=== PATIENT | male | born 1995 | race Caucasian/White ===

== ENCOUNTER 2020-01-30 08:30 | Emergency (ER) | payer OTHER, SELFPAY ==
[2020-01-30 08:32] VITALS: BP 154/75; PULSE 71; RESP 18; TEMP 36.3; O2SAT 99; BMI 26.6
[2020-01-30] MEDS: Lidocaine/Epi/Tetracaine 50 ML 1 APPLIC TOPICAL (09:02)
--- NOTE | 2020-01-30 09:59 | ED.VIS.UPPEX ---
History of Present Illness Chief Complaint: Laceration Informant: Patient Occurred: Today - JPTA Mechanism/Context: Injury - accidentally on sharp end of a piece of metal Context: Sudden Onset Timing: Continuous Quality of Pain: - - sore Location: right hand Current Severity: Mild Maximum Severity: Mild Worsened by: palpation Relieved by: leaving alone Associated Symptoms: Negative for: Parasthesia, Weakness, Loss of Funtion Narrative: Last tetanus is 5 years ago. [id number]. Past Medical History - Allergies and Home Meds Allergies/Adverse Reactions: Allergies No Known Allergies Allergy (Verified 01/30/20 08:31) Primary Care Physician: Tika Jiménez MD [Primary Care Provider] - Past Medical History: None Smoking Status: Current some day smoker Review of Systems Musculoskeletal: Reports: Extremity Pain Skin: Reports: Wounds Neurological: Denies: Headache, Weakness, Numbness Physical Exam Vital Signs/Narrative: Vital Signs Temp Pulse Resp BP Pulse Ox 01/30/20 08:32 97.3 F L 71 18 154/75 H 99 General: Well nourished, Well developed, - - No acute distress Head: Normocephalic, Atraumatic Extremeties: Full range of motion throughout all digits and the wrist, throughout the right hand. The tendon of the extensor digitorum to the middle finger is plainly exposed within the laceration. Full extension without pain is present. The extensor tendon was inspected throughout the full range of the finger, and there is no sign of any injury to it. There is no gross contamination to the wound with one exception, there is one small speck of john material, unknown if it is dirt, metal, etc. Skin: Normal color, No rash, Trauma - 2.5 cm clean appearing linear laceration down to the tendons on the dorsum of the right hand Neurological: Alert, Oriented x3, Cranial nerves II-XII grossly intact, Normal Strength, Normal Sensation, Normal Gait Psychological: Normal affect, Normal Mood Diagnostic/Tx/Re-eval - Medical Decision Making Wound was repaired, the punctate contamination was removed, wound was irrigated thoroughly. All questions answered at the bedside, removal in 10-14 days. Procedures - Lacerations R hand Length: 2.5 cm Depth: Tendon - but tendon not injured Shape: Linear Prep: Sterile Conditions, Chlorhexadine Laceration repair: Foreign material removed, Irrigated, Lidocaine with epi, Local - topical LET, Wound explored Irrigated (ml): 100 Number of Sutures/Carrie: 3 Suture Information: Ethilon, Horizontal, Mattress, 4-0 ED Disposition - Plan for ED Patient: Disposition: Home or Assisted Living Diagnosis: Laceration of right hand Instructions: ED Laceration Hand Referrals: Tika Jiménez MD [Primary Care Provider] - 10-14 Days suture removal (Or may come back to ER.)
[2020-01-30 10:22] VITALS: RESP 16
== END 2020-01-30 10:24 | disposition home or self-care (01) ==
LOC: ED 10:20
PROVIDERS: Emergency Provider Emergency Medicine
DX: S61.411A Laceration without foreign body of right hand, initial encounter (principal); F17.200 Nicotine dependence, unspecified, uncomplicated; W26.8XXA Contact with other sharp object(s), not elsewhere classified, initial encounter; Y93.89 Activity, other specified; Y92.89 Other specified places as the place of occurrence of the external cause; Y99.8 Other external cause status
CPT/HCPCS: 12001; 99283

== ENCOUNTER 2021-11-27 11:39 | Emergency (ER) | payer OTHER, SELFPAY ==
[2021-11-27 11:40] VITALS: BP 161/65; PULSE 77; RESP 15; TEMP 36.8; O2SAT 97; BMI 28.5
--- NOTE | 2021-11-27 11:48 | EDS_ITS ---
HPI History of Present Illness HPI Narrative: Patient presents with left PIP digit injury after smashing hammer into it. He was holding down an object and smashed sideways pinching the skin. He did not sustain any bony injury. He has no bony pain. He has no problems with flexing or extending. His tetanus is not up-to-date. No other injury. Chief Complaint: Laceration PFSH PFSH Medical History no medical history Home Medications NK 01/30/20 [History Last Taken Unknown] Allergy/AdvReac Type Severity Reaction Status Date / Time No Known Allergies Allergy Verified 01/30/20 08:31 Social History Smoking Status: Current some day smoker tobacco type: pipe ROS ROS ED ROS Narrative Past medical history: none Medications: Reviewed Social history: Noncontributory Review of systems: Musculoskeletal: Left fifth digit injury Skin: Laceration as in HPI Neurological: No weakness or paresthesias Hematologic: No easy bleeding or easy bruising EXAM Physical Exam Narrative Exam Narrative: Physical exam General: Patient does not appear in significant distress . Head: Normocephalic, Atraumatic Cardiovascular: Normal distal pulses Back: Nontender, Normal Inspection. Extremities: Left fifth digit shows a semicircular laceration of the dorsum of the PIP region. There is no bony tenderness. There is no bone exposed or tendon exposed. The tendon function is normal including flexor and extensor tendon. Skin: As above Neurological: Normal strength and sensation Const Vital Signs: 11/27/21 11:40 Temperature 98.2 F Temperature Source Temporal Pulse Rate 77 Respiratory Rate 15 Blood Pressure 161/65 H Blood Pressure Mean 97 Pulse Ox 97 Oxygen Delivery Method Room Air MDM MDM MDM Narrative Medical decision making narrative: Tetanus updated, I sutured his laceration x- rays are not needed at this time. Patient was reassured I will discharge him in stable condition with suture removal instructions and 7 to 10 days Procedures Lacerations lac: Length: 0.79 in Depth: Sub Q Shape: Flap Prep: Derek Laceration repair: Lidocaine (1%), Local and Wound explored Number of Sutures/[place]: 3 Suture Information: Ethilon and - (4-0) Discharge Plan Triage Chief Complaint: Laceration ED Provider: Ryan Berkowitz Dx/Rx/DC Orders Clinical Impression: Contusion of finger, Finger laceration Instructions: ED Laceration, Hand: All Closures Prescriptions: No Action NK RF: 0 Primary Care Provider: Care Physician,No Primary Referrals: Care Physician,No Primary [Primary Care Provider] - 10 Day for suture removal Disposition Disposition: Home, Self Care
[2021-11-27] MEDS: Diphth,Pertuss(Acell),Tet Vac 0.5 ML Vial IM (12:14)
[2021-11-27] MEDS: Lidocaine 1% (20 ml mdv) 20 ML Vial INFILT (12:15)
== END 2021-11-27 12:54 | disposition home or self-care (01) ==
PROVIDERS: Emergency Provider Emergency Medicine; Visit Provider Emergency Medicine
DX: S61.219A Laceration without foreign body of unspecified finger without damage to nail, initial encounter (principal); F17.290 Nicotine dependence, other tobacco product, uncomplicated; W22.8XXA Striking against or struck by other objects, initial encounter; Y93.89 Activity, other specified; Y99.9 Unspecified external cause status; Y92.9 Unspecified place or not applicable; Z23 Encounter for immunization
CPT/HCPCS: 12001; 90471; 90715; 99282